=== PATIENT | male | born 1985 | race Caucasian/White ===

== ENCOUNTER 2017-03-03 23:48 | Emergency (ER) | payer SELFPAY ==
[~2017-03-03] VITALS: Ht 188 cm; Wt 86.4 kg
[~2017-03-03 23:48] MED LIST: FAMO-18 PO; ONDA4TAB8 PO; RANI150T9 PO
[2017-03-03 23:51] VITALS: Ht 188 cm; Wt 86.4 kg
== END 2017-03-04 09:25 | disposition left against medical advice (07) ==
LOC: E/R 23:48
DX: Z53.21 Procedure and treatment not carried out due to patient leaving prior to being seen by health care provider (principal)

== ENCOUNTER 2018-09-12 07:08 | Day surgery (SDC) | END 2018-09-12 15:29 | disposition home or self-care (01) ==

== ENCOUNTER 2018-09-23 00:09 | Observation (INO) | END 2018-09-24 16:10 | disposition home or self-care (01) ==